=== PATIENT | male | born 1965 | race American Indian/Alaskan Native ===

== ENCOUNTER 2018-02-07 14:34 | Emergency (ER) | payer OTHER ==
[2018-02-07 15:11] VITALS: BP 147/96
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
== END 2018-02-07 18:38 | disposition home or self-care (01) ==
LOC: ED 14:34
DX: R51 Headache (principal); I10 Essential (primary) hypertension; F17.200 Nicotine dependence, unspecified, uncomplicated
CPT/HCPCS: 70450; 72125; 99283